=== PATIENT | female | born 1985 | race Caucasian/White ===

== ENCOUNTER 2017-10-08 03:13 | Emergency (ER) | payer OTHER, MEDICAID ==
[2017-10-08] MEDS ORDERED: LORazepam 1 MG TAB PO ONE (03:17)
--- NOTE | 2017-10-08 03:22 | EDPHY ---
H & P HPI/ROS: HPI CHIEF COMPLAINT: Anxiety attack HISTORY OF PRESENT ILLNESS: This patient is a 32-year-old female, significant past medical history for alcoholism, daily alcohol use homelessness, as well as anxiety and PTSD, she presents emergency room by EMS for acute anxiety attack. Patient called 911 front of a coffee store that is not open stating that she was having anxiety attack. She states she found out that she may been exposed HIV 3 years ago. This caused her to feel very anxious and she came to the emergency room by ambulance. Upon arrival she does state that she is anxious. She is noted to be tachycardic. But denies any other complaints. She is requesting HIV testing. Past Medical History: Anxiety, homelessness, daily alcohol use, alcoholism, PTSD, migraine headaches Past Surgical History: No recent surgery Social History: Homeless, daily alcohol use. Family History: Noncontributory ROS REVIEW OF SYSTEMS: A comprehensive 10 point review of systems is otherwise negative aside from elements mentioned in the history of present illness. Exam Constitutional appears anxious, triage nursing summary reviewed, vital signs reviewed, awake/alert. Noted to be tachycardic. Eyes normal conjunctivae and sclera, EOMI, PERRLA. HENT normal inspection, atraumatic, moist mucus membranes, no epistaxis, neck supple/ no meningismus, no raccoon eyes. Respiratory clear to auscultation bilaterally, normal breath sounds, no respiratory distress, no wheezing. Cardiovascular tachycardic , regular rhythm, no murmur, no edema, distal pulses normal. Gastrointestinal soft, non-tender, no rebound, no guarding, normal bowel sounds, no distension, no pulsatile mass. Genitourinary no CVA tenderness. Musculoskeletal no midline vertebral tenderness, full range of motion, no calf swelling, no tenderness of extremities, no meningismus, good pulses, neurovascularly intact. Skin pink, warm, & dry, no rash, skin atraumatic. Neurologic awake, alert and oriented x 3, AAOx3, moves all 4 extremities equally, motor intact, sensory intact, CN II-XII intact, normal cerebellar, normal vision, normal speech. Psychiatric anxious Heme/Lymph/Immune no lymphadenopathy. Differential Diagnosis: Includes but is not limited to in a particular order acute anxiety, panic attack, dehydration, cardiac arrhythmia Medical Decision Making: Plan for this patient 1 mg p.o. Ativan for acute anxiety control, obtain EKG due to tachycardia. Re-evaluation: 040: Patient received 1 mg p.o. Ativan. However when we were trying to obtain EKG she wanted leave against medical advice. She decided that she wanted to no longer be in the emergency room she went to go outside and smoke a cigarette. Heart rate was 130s. Were in the process of obtaining an EKG but she refused this decline. She signed out against medical advice. She understands the risk of doing so. Source: Patient, EMS - Personal History Tetanus Vaccine Date: < 10 years - Medical/Surgical History Hx Asthma: No Hx Chronic Respiratory Disease: No Hx Diabetes: No Hx Cardiac Disease: No Hx Renal Disease: No Hx Cirrhosis: No Hx Alcoholism: No Hx HIV/AIDS: No Hx Splenectomy or Spleen Trauma: No Other PMH: PS, ETOH abuse, PTSD, bipolar; borderline personality disorder; anxiety; depression - Social History Smoking Status: Heavy smoker Constitutional: Initial Vital Signs Temperature (C) 36.5 C 10/08/17 03:27 Heart Rate 130 H 10/08/17 03:27 Respiratory Rate 20 10/08/17 03:27 Blood Pressure 163/102 H 10/08/17 03:27 O2 Sat (%) 96 10/08/17 03:27 O2 Delivery Mode Room Air Allergies/Adverse Reactions: No Known Allergies Allergy (Verified 10/08/17 03:32) Home Medications: Medication Instructions Recorded ALPRAZolam [Xanax] 0.25 mg PO TID #90 tab 01/13/16 FLUoxetine [Prozac] 20 mg PO DAILY #60 cap 01/13/16 Medical Decision Making - Data Points Medications Given: Discontinued Medications Lorazepam (Ativan) 1 mg PO ONCE ONE Stop: 10/08/17 03:18 Last Admin: 10/08/17 03:25 Dose: 1 mg Departure - Departure Disposition: Against Medical Advice Clinical Impression: Anxiety, Tachycardia Condition: Fair Instructions: Anxiety (ED), Tachycardia (ED) Additional Instructions: 1. Return emergency room if you have worsening symptoms questions concerns. 2. If you change of mind about leaving where more than welcome to continue to evaluate. Referrals: Patient,NotPresent [Unknown] - As per Instructions
[2017-10-08 03:29] VITALS: BP 163/102; PULSE 130; RESP 20; TEMP 97.7; O2SAT 96
--- NOTE | 2017-10-10 17:28 | ASDISCHSUM ---
Discharge Information Plan Status: Medically Cleared to Leave:10/08/2017 Discharge Date:10/08/2017 04:08 AM CM D/C Disposition:Against Medical Advice ADT D/C Disposition:Against Medical Advice Projected Discharge Date:10/09/2017 12:00 AM Transportation at D/C: Discharge Delay Reason: Follow-Up Date:10/09/2017 12:00 AM Discharge Slot: Final Diagnosis:ETOH W/D, Suicidal ideation, Depression Placement Information Patient Contact Information Contact Name:MARKELL Relationship:Teja Address: Home Phone: City: [facility] Phone: [facility]/Zip Code: Email: Financial Information Financial Class: Primary Plan Desc:MEDICARE OUTPATIENT Primary Plan Number:[id number] Secondary Plan Desc:MEDICAID HEALTH FIRST [place] Secondary Plan Number:[id number] Assessment Information Case Management Discharge Plan Note Case Management Discharge Discharge Order Complete? Answers: Yes Patient to Obtain Answers: Independently Medications Discharge Comments Notes: Patient was seen by TLC who didn't feel she was suicidal at that time.TLC recommended that she become a patient with [facility]. She didn't want to stay in the hospital any longer and left. Date Signed: 10/10/2017 05:27 PM Electronically Signed By:Veronica Barrientos LCSW Intervention Information
== END 2017-10-08 04:08 | disposition left against medical advice (07) ==
LOC: EDUNIT#
DX: F41.9 Anxiety disorder, unspecified (principal); R00.0 Tachycardia, unspecified; F17.200 Nicotine dependence, unspecified, uncomplicated

== ENCOUNTER 2017-10-08 05:26 | Inpatient (IN) | payer MEDICAID, OTHER ==
--- NOTE | 2017-10-08 05:38 | EDPHY ---
H & P Stated Complaint: SI Source: Patient - Personal History LMP (Females 10-55): 15-21 Days Ago Current Tetanus/Diphtheria Vaccine: Yes Current Tetanus Diphtheria and Acellular Pertussis (TDAP): Yes Tetanus Vaccine Date: < 10 years - Medical/Surgical History Hx Asthma: No Hx Chronic Respiratory Disease: No Hx Diabetes: No Hx Cardiac Disease: No Hx Renal Disease: No Hx Cirrhosis: No Hx Alcoholism: No Hx HIV/AIDS: No Hx Splenectomy or Spleen Trauma: No Other PMH: PS, ETOH abuse, PTSD, bipolar; borderline personality disorder; anxiety; depression - Social History Smoking Status: Heavy smoker HPI/ROS: HPI CHIEF COMPLAINT: Suicidal ideation, anxiety HISTORY OF PRESENT ILLNESS: This patient is a 32-year-old female that just saw in the emergency room earlier and she left AMA to go outside and smoke cigarettes, she now presents back to the emergency room stating that she is suicidal. She does not have a specific plan for me. She does have underlying mental illness including borderline personality disorder, attention deficit hyperactivity disorder, PTSD anxiety. She states she is feeling very depressed and suicidal. Of note she did go outside for approximately an hour and smoked cigarettes. She now presents back to the emergency room she is noted to be tachycardic in the 130s. She has no complaints other than suicidal ideation. Past Medical History: PTSD, borderline personality disorder, anxiety, panic attack Past Surgical History: Denies recent surgery. Social History: Smokes tobacco. Denies illicit drugs or alcohol this evening. Family History: Noncontributory. ROS REVIEW OF SYSTEMS: A comprehensive 10 point review of systems is otherwise negative aside from elements mentioned in the history of present illness. Exam Constitutional triage nursing summary reviewed, vital signs reviewed, awake/ alert. Vital signs noted to be tachycardic. Eyes normal conjunctivae and sclera, EOMI, PERRLA. HENT normal inspection, atraumatic, moist mucus membranes, no epistaxis, neck supple/ no meningismus, no raccoon eyes. Respiratory clear to auscultation bilaterally, normal breath sounds, no respiratory distress, no wheezing. Cardiovascular tachycardic, regular rhythm, no murmur, no edema, distal pulses normal. Gastrointestinal soft, non-tender, no rebound, no guarding, normal bowel sounds, no distension, no pulsatile mass. Genitourinary no CVA tenderness. Musculoskeletal no midline vertebral tenderness, full range of motion, no calf swelling, no tenderness of extremities, no meningismus, good pulses, neurovascularly intact. Skin pink, warm, & dry, no rash, skin atraumatic. Neurologic awake, alert and oriented x 3, AAOx3, moves all 4 extremities equally, motor intact, sensory intact, CN II-XII intact, normal cerebellar, normal vision, normal speech. Psychiatric anxious, suicidal Heme/Lymph/Immune no lymphadenopathy. Differential Diagnosis: Includes but is not limited to in a particular order, depression, suicidal ideation, borderline personality disorder, malingering, drug intoxication, anxiety, alcohol draw, benzo withdrawal, polysubstance use Medical Decision Making: Plan for this patient IV establishment with blood draw for medical clearance, EKG for tachycardia, check drug screen. Patient be placed on M1 hold. Re-evaluation: 0549: M1 hold placed at this time. EKG interpretation by me on record in [employer] system. Impression time of EKG 5:55 a.m., sinus tachycardia rate of 147. Do not appreciate acute ischemic change. Patient denies chest pain or shortness of breath this EKG. 0636: Spoke with patient re-evaluated her. She does state that she is very anxious. She requested that her last dose of Xanax was over week ago. Also her last drink of alcohol she is states was 4 days ago. She does not think that she is going to alcohol withdrawal. I have ordered a L fluid as well as another mg IV Ativan to see if this helps for anxiety and tachycardia. Additionally I have added on a TSH. She denies drug use cocaine or stimulants. She is tachycardic upon arrival to Emergency room to 130s. At times when I walk into the room she feels anxious she goes up to the 150s. (Morro Melo) Constitutional: Initial Vital Signs Temperature (C) 36.6 C 10/08/17 05:29 Heart Rate 134 H 10/08/17 05:29 Respiratory Rate 16 10/08/17 05:29 Blood Pressure 152/100 H 10/08/17 05:29 O2 Sat (%) 99 10/08/17 05:29 O2 Delivery Mode Room Air Allergies/Adverse Reactions: No Known Allergies Allergy (Verified 10/08/17 03:32) Home Medications: Medication Instructions Recorded ALPRAZolam [Xanax] 0.25 mg PO TID #90 tab 01/13/16 FLUoxetine [Prozac] 20 mg PO DAILY #60 cap 01/13/16 Medical Decision Making ED Course/Re-evaluation: I assumed care of the patient at 0700 and evaluated her personally 8 o'clock in the morning. The patient continues to be tachycardic. It is unclear whether she may have some element of alcohol withdrawal. She reports her last drink was 5 days ago. She reports that she was having only a few drinks a day. The patient has been on benzodiazepines but reports she has been off these medications for 2 months. The patient continues to endorse vague suicidal ideation over concerns about possible HIV exposure. She denies a specific plan. The patient continued to have fairly significant tachycardia and agitation. I re-evaluated the patient at 8:30 p.m.. She was attempting to pull out her IVs. She required additional physical and chemical restraints. The patient will be admitted to the intensive care unit in the setting of her tachycardia, likely alcohol withdrawal and reported suicidal ideation. The patient received an additional 2 mg dose of IV Ativan at 8:30 a.m and he received 5 mg of Consultation was made with the hospitalist service at 8:40 a.m. The patient will be admitted by Dr Couch who I spoke with personally. I did check a CPK which was normal. The patient's urine toxicology demonstrates no evidence of a sympathomimetic. (Joshua Lucio) Differential Diagnosis: Differential diagnosis considered includes alcohol withdrawal, psychosis, dehydration, medication side effect, intoxication (Joshua Lucio) Critical Care Time: Critical care time exclusive of procedures and exclusive of the PA's time was 35 minutes, performed by myself, Joshua Lucio MD. The patient presents to the ED with agitation, ongoing tachycardia and likely severe alcohol withdrawal. The patient required multiple IV medications for treatment of her agitation and tachycardia. The patient ultimately required admission to the intensive care unit. (Joshua Lucio) Other Provider: I assumed care of the patient at 0700. (Joshua Lucio) - Data Points Laboratory Results: Laboratory Results 10/08/17 06:17 12 06:17 10/08/17 10/08/17 10/08/17 07:45 06:17 06:17 WBC RBC Hgb Hct MCV MCH MCHC RDW Plt Count MPV Neut % (Auto) Lymph % (Auto) Emery % (Auto) Eos % (Auto) Baso % (Auto) Nucleat RBC Rel Count Absolute Neuts (auto) Absolute Lymphs (auto) Absolute Monos (auto) Absolute Eos (auto) Absolute Basos (auto) Absolute Nucleated RBC Immature Gran % Immature Gran # Sodium Potassium Chloride Carbon Dioxide Anion Gap BUN Creatinine Estimated GFR Glucose Calcium Phosphorus Creatine Kinase 96 IU/L IU/L (0-156) TSH Beta HCG, Qual NEGATIVE Urine Opiates Screen NEGATIVE (NEGATIVE) Urine Barbiturates NEGATIVE (NEGATIVE) Ur Phencyclidine Scrn NEGATIVE (NEGATIVE) Ur Amphetamine Screen NEGATIVE (NEGATIVE) U Benzodiazepines Scrn NEGATIVE (NEGATIVE) Urine Cocaine Screen NEGATIVE (NEGATIVE) U Marijuana (THC) Screen NEGATIVE (NEGATIVE) Ethyl Alcohol 10/08/17 10/08/17 06:17 06:17 WBC 5.11 10^3/uL 10^3/uL (3.80-9.50) RBC 4.96 10^6/uL 10^6/uL (4.18-5.33) Hgb 17.1 g/dL H g/dL (12.6-16.3) Hct 48.5 % H % (38.0-47.0) MCV 97.8 fL fL (81.5-99.8) MCH 34.5 pg H pg (27.9-34.1) MCHC 35.3 g/dL g/dL (32.4-36.7) RDW 12.1 % % (11.5-15.2) Plt Count 123 10^3/uL L 10^3/uL (150-400) MPV 10.5 fL fL (8.7-11.7) Neut % (Auto) 70.8 % % (39.3-74.2) Lymph % (Auto) 18.8 % % (15.0-45.0) Emery % (Auto) 9.0 % % (4.5-13.0) Eos % (Auto) 0.4 % L % (0.6-7.6) Baso % (Auto) 0.8 % % (0.3-1.7) Nucleat RBC Rel Count 0.0 % % (0.0-0.2) Absolute Neuts (auto) 3.62 10^3/uL 10^3/uL (1.70-6.50) Absolute Lymphs (auto) 0.96 10^3/uL L 10^3/uL (1.00-3.00) Absolute Monos (auto) 0.46 10^3/uL 10^3/uL (0.30-0.80) Absolute Eos (auto) 0.02 10^3/uL L 10^3/uL (0.03-0.40) Absolute Basos (auto) 0.04 10^3/uL 10^3/uL (0.02-0.10) Absolute Nucleated RBC 0.00 10^3/uL 10^3/uL (0-0.01) Immature Gran % 0.2 % % (0.0-1.1) Immature Gran # 0.01 10^3/uL 10^3/uL (0.00-0.10) Sodium 139 mEq/L mEq/L (134-144) Potassium 3.6 mEq/L mEq/L (3.5-5.2) Chloride 98 mEq/L mEq/L (97-110) Carbon Dioxide 24 mEq/l mEq/l (22-31) Anion Gap 17 mEq/L H mEq/L (8-16) BUN 7 mg/dL mg/dL (7-23) Creatinine 0.9 mg/dL mg/dL (0.6-1.0) Estimated GFR > 60 Glucose 109 mg/dL H mg/dL (70-100) Calcium 10.7 mg/dL H mg/dL (8.5-10.4) Phosphorus 3.3 mg/dL mg/dL (2.5-4.5) Creatine Kinase TSH 5.280 uIU/mL H uIU/mL (0.465-4.680) Beta HCG, Qual Urine Opiates Screen Urine Barbiturates Ur Phencyclidine Scrn Ur Amphetamine Screen U Benzodiazepines Scrn Urine Cocaine Screen U Marijuana (THC) Screen Ethyl Alcohol < 10 mg/dL mg/dL (0-10) Medications Given: Discontinued Medications Sodium Chloride (Ns) 1,000 mls @ 0 mls/hr IV ONCE ONE PRN Reason: Wide Open Stop: 10/08/17 05:45 Last Admin: 10/08/17 06:36 Dose: 1,000 mls Sodium Chloride (Ns) 1,000 mls @ 0 mls/hr IV ONCE ONE PRN Reason: Wide Open Stop: 10/08/17 06:30 Last Admin: 10/08/17 06:37 Dose: 1,000 mls Lorazepam (Ativan Injection) 1 mg IVP EDNOW ONE Stop: 10/08/17 05:59 Last Admin: 10/08/17 06:36 Dose: 1 mg Lorazepam (Ativan Injection) 1 mg IVP EDNOW ONE Stop: 10/08/17 06:30 Last Admin: 10/08/17 06:36 Dose: 1 mg Lorazepam (Ativan Injection) 1 mg IVP EDNOW ONE Stop: 10/08/17 06:47 Last Admin: 10/08/17 06:52 Dose: 1 mg Lorazepam (Ativan Injection) 2 mg IVP EDNOW ONE Stop: 10/08/17 08:44 Last Admin: 10/08/17 08:44 Dose: 2 mg Departure - Departure Disposition: [facility] Clinical Impression: Suicidal ideation, Tachycardia, Alcohol withdrawal Condition: Fair
[2017-10-08] MEDS ORDERED: NS 1,000 ML IV ONE ×2 (05:44→06:29)
--- NOTE | 2017-10-08 05:56 | CPEKG ---
Heart Rate: 147 RR Interval: 408 P-R Interval: 132 QRSD Interval: 72 QT Interval: 268 QTC Interval: 420 P Alma: 74 QRS Alma: 59 T Wave Alma: 82 EKG Severity - ABNORMAL ECG - EKG Impression: SINUS TACHYCARDIA EKG Impression: PROBABLE LEFT ATRIAL ABNORMALITY EKG Impression: BORDERLINE Q WAVES IN INFERIOR LEADS EKG Impression: INFERIOR Q WAVES, PROBABLY NORMAL VARIATION Electronically Signed By: Morro Melo 08-Oct-2017 07:06:53
[2017-10-08] MEDS ORDERED: LORazepam 2 MG/ML INJ IVP ONE ×4 (05:58→08:43)
[2017-10-08 06:24] LABS: % IMMATURE GRANULYOCYTES 0.2 % (0.0-1.1); ABSOLUTE IMMATURE GRANULOCYTES 0.01 10^3/uL (0.00-0.10); ADD DIFF? NO; ADD MORPH? NO; ADD SCAN? NO; ATYPICAL LYMPHOCYTE FLAG 0 (0-99); FRAGMENT RBC FLAG 0 (0-99); HEMATOCRIT 48.5 % (38.0-47.0); HEMOGLOBIN 17.1 g/dL (12.6-16.3); LEFT SHIFT FLG 0 (0-99); LIPEMIA HEMOLYSIS FLAG 90 (0-99); MEAN CELL HEMOGLOBIN 34.5 pg (27.9-34.1); MEAN CELL HEMOGLOBIN CONCENTR. 35.3 g/dL (32.4-36.7); MEAN CELL VOLUME 97.8 fL (81.5-99.8); MEAN PLATELET VOLUME 10.5 fL (8.7-11.7); PLATELET CLUMPS FLAG 10 (0-99); PLATELET COUNT 123 10^3/uL (150-400); RED BLOOD CELL COUNT 4.96 10^6/uL (4.18-5.33); RED CELL DISTRIBUTION WIDTH 12.1 % (11.5-15.2)
[2017-10-08 06:46] LABS: ANION GAP 17 mEq/L (8-16); CALCIUM 10.7 mg/dL (8.5-10.4); CARBON DIOXIDE 24 mEq/l (22-31); CHLORIDE 98 mEq/L (97-110); CREATININE 0.9 mg/dL (0.6-1.0); ETHANOL SERUM < 10 mg/dL (0-10); GLOMERULAR FILTRATION RATE > 60; GLUCOSE 109 mg/dL (70-100); POTASSIUM 3.6 mEq/L (3.5-5.2); SODIUM 139 mEq/L (134-144)
[2017-10-08] MEDS ORDERED: LORazepam 2 MG/ML INJ ONE (08:33)
[2017-10-08] MEDS ORDERED: OLANZapine DISINTEGR 5 MG TAB PO ONE (08:51)
[2017-10-08] MEDS ORDERED: HALOPERIDOL LACT 5 MG/ML INJ IVP PRN (09:56)
[2017-10-08] MEDS ORDERED: DEXMEDETOMIDINE HCL 400 MCG in NS 100 ML IV SCH (10:00)
[2017-10-08] MEDS: LORazepam 2 MG/ML INJ IVP SCH ×4 (10:07→20:14)
[2017-10-08] MEDS: FLUoxetine 20 MG CAP PO SCH (12:10)
[2017-10-08] MEDS: D5W 1/2 NS W/ 20 KCl/L 1,000 ML IV SCH (12:40)
[2017-10-08] MEDS: THIAMINE HCL 500 MG in NS 100 ML IV SCH (12:40)
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
[2017-10-08] MEDS: CYCLOBENZAPRINE 10 MG TAB PO PRN (20:14)
[2017-10-08] MEDS: FAMOTIDINE 20 MG TAB PO SCH (20:14)
[2017-10-09] MEDS: LORazepam 2 MG/ML INJ IVP SCH ×4 (02:24→15:04)
[2017-10-09] MEDS: D5W 1/2 NS W/ 20 KCl/L 1,000 ML IV SCH ×2 (02:24→05:27)
[2017-10-09] MEDS: DEXMEDETOMIDINE IN 0.9 % NACL 100 ML IV SCH ×2 (05:27)
[2017-10-09 05:48] LABS: % IMMATURE GRANULYOCYTES 0.3 % (0.0-1.1); ABSOLUTE IMMATURE GRANULOCYTES 0.01 10^3/uL (0.00-0.10); ADD DIFF? NO; ADD MORPH? NO; ADD SCAN? NO; ATYPICAL LYMPHOCYTE FLAG 0 (0-99); FRAGMENT RBC FLAG 0 (0-99); HEMATOCRIT 39.7 % (38.0-47.0); HEMOGLOBIN 13.8 g/dL (12.6-16.3); LEFT SHIFT FLG 0 (0-99); LIPEMIA HEMOLYSIS FLAG 90 (0-99); MEAN CELL HEMOGLOBIN 35.2 pg (27.9-34.1); MEAN CELL HEMOGLOBIN CONCENTR. 34.8 g/dL (32.4-36.7); MEAN CELL VOLUME 101.3 fL (81.5-99.8); MEAN PLATELET VOLUME 10.9 fL (8.7-11.7); PLATELET CLUMPS FLAG 10 (0-99); PLATELET COUNT 90 10^3/uL (150-400); RED BLOOD CELL COUNT 3.92 10^6/uL (4.18-5.33)
[2017-10-09 06:09] LABS: ANION GAP 8 mEq/L (8-16); CALCIUM 8.8 mg/dL (8.5-10.4); CARBON DIOXIDE 23 mEq/l (22-31); CHLORIDE 108 mEq/L (97-110); CREATININE 0.8 mg/dL (0.6-1.0); GLOMERULAR FILTRATION RATE > 60; GLUCOSE 93 mg/dL (70-100); MAGNESIUM 1.5 mg/dL (1.6-2.3); POTASSIUM 4.4 mEq/L (3.5-5.2); SODIUM 139 mEq/L (134-144)
[2017-10-09] MEDS: FAMOTIDINE 20 MG TAB PO SCH (08:59)
[2017-10-09] MEDS: FLUoxetine 20 MG CAP PO SCH (08:59)
[2017-10-09] MEDS: THIAMINE HCL 500 MG in NS 100 ML IV SCH (08:59)
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
[2017-10-09] MEDS: chlordiazePOXIDE 25 MG CAP PO SCH ×2 (12:03→16:33)
--- NOTE | 2017-10-09 14:20 | HOSPPROG ---
Hospitalist Progress Note Assessment/Plan: # acute alcohol withdrawal- patient with marked tachycardia and tremulousness at presentation yesterday placed on Precedex drip overnight Markedly less tremulous this a.m. reports baseline tremor- telemetry ( personally reviewed and interpreted) sinus rhythm- heart rate in 90s this a.m. WBC dropped to 3 this am - oxygen saturations 94% on RA - DC Precedex - start scheduled Librium - continue CIWA - continue thiamin - can medically clear for psychiatric evaluation # suicidal ideation- acute- M1 hold placed in the emergency department - continue home psychiatric medications - TLC consultation for disposition # depression - continue home meds as outlined above # disposition- > 2 midnight as requiring medical management of acute alcohol withdrawal in psychiatric consultation for suicidal ideation I have discussed the case with the RN- CIWA score markedly improved will medically clear for TLC evaluation Subjective: tired Objective: Vital Signs Temp Pulse Resp BP Pulse Ox 36.7 C 94 18 104/64 99 10/09/17 11:50 10/09/17 11:50 10/09/17 11:50 10/09/17 11:50 10/09/17 11:50 Laboratory Results 10/09/17 05:30 10/09/17 05:30 10/08/17 10/09/17 10/10/17 05:59 05:59 05:59 Intake Total 5179 Output Total 1550 Balance 3629 - Physical Exam Constitutional: appears nourished Eyes: anicteric sclera Ears, Nose, Mouth, Throat: dry mucous membranes Cardiovascular: regular rate and rhythym Respiratory: no respiratory distress, no rales or rhonchi Gastrointestinal: normoactive bowel sounds Genitourinary: no bladder fullness Skin: warm Musculoskeletal: No asymmetric calves Neurologic: AAOx3 Psychiatric: depressed, flat affect Lymph, Heme, Immunologic: no cervical LAD ICD10 Worksheet Patient Problems: Problems Problem Status Onset Alcohol withdrawal Acute Suicidal ideation Acute Tachycardia Acute Alcohol abuse Acute Alcohol intoxication Acute Polysubstance abuse Acute Unresponsive Acute
[2017-10-09] MEDS: CYCLOBENZAPRINE 10 MG TAB PO PRN (16:33)
[2017-10-09] MEDS ORDERED: LORazepam 1 MG TAB PO PRN (17:09)
[2017-10-09] MEDS ORDERED: ACETAMINOPHEN 325 MG TAB PO PRN (17:10)
--- NOTE | 2017-10-09 20:36 | PDDCSUM ---
Discharge Summary Discharge Summary: DISCHARGE SUMMARY FOLLOW-UP ITEMS: Establish mental health care at [facility] DATE OF ADMISSION: 10/08/2017 DATE OF DISCHARGE: 10/09/2017 DISCHARGE DIAGNOSES: 1. Acute suicidal ideation 2. Acute alcohol withdrawal 3. Chronic depression CONSULTATIONS: Behavioral health PROCEDURES / IMAGING: None CHIEF COMPLAINT: Acute suicidal ideation SUBJECTIVE: Patient is feeling anxious but determined to be discharged PHYSICAL EXAM ON DISCHARGE: Heart rate 100, systolic blood pressure 117 comma afebrile, satting well on room air, mildly tremulous, anxious, thought process is linear, speech is somewhat rapid, but the patient is cooperative and does follow commands, pain level 0/10, she is fully oriented and understands the potential ramifications of being discharged at night LABS ON DISCHARGE: TSH 5.2, alcohol level negative, tox screen negative HOSPITAL COURSE BY PROBLEM: 1. Acute alcohol withdrawal. Patient presented with tachycardia and tremulousness, required a Precedex drip in the ICU, behaviorally stablized, and has only required 1 dosage of oral benzodiazepine today. She does have some ongoing mild tremulousness, and does appear easily excitable, but she does not appear to be encephalopathic, and she is requesting to be discharged at this time. Given her potential risk of ongoing alcohol abuse, I do not feel comfortable prescribing her benzodiazepines and none will be provided at time of discharge. 2. Acute suicidal ideation. Patient reports that she was suicidal when she presented secondary to a panic attack secondary to her challenging life situation. I evaluated her prior to discharge and the patient reports that she is not suicidal. She was also seen by behavioral health and they did not believe she was suicidal either. They did recommend ongoing outpatient mental health care, preferably through [facility]. The patient reports that she has establish care at [facility], but is not established at [facility]. She will need to establish care after this discharge. 3. Chronic depression. The patient reports that she has chronic depression is chronically on Prozac. This is prescribed the [facility]. She reports she does not have any of these medications available. I have written a script for 20 mg of Prozac. The patient has asked for other medications to help manage her anxiety and chronic pain including muscle relaxants and benzodiazepines, and I do not feel comfortable prescribing these medications this patient at this time given her high abuse potential. I have offered to allow the patient to continue receiving care here in the hospital so that she can be reassessed by her regular day team providers, and the patient has declined this offer, asking to be discharged at this time. DISCHARGE MEDICATIONS: Please see official discharge medication reconciliation sheet in chart , Prozac 20 mg daily. DISCHARGE INSTRUCTIONS: [facility] thereafter. TIME SPENT: Greater than 30 minutes were spent on direct patient care, as well as discharge planning and preparation.
[2017-10-09 20:37] VITALS: BP 114/87; PULSE 107; RESP 20; TEMP 98; O2SAT 95
[2017-10-10] MEDS ORDERED: THIAMINE HCL 100 MG TAB PO SCH (09:00)
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
== END 2017-10-09 20:30 | disposition home or self-care (01) | DRG 897 ==
LOC: F2N 11:04
PROVIDERS: ADMIT Internal Medicine; ATTEND Internal Medicine
DX: F10.239 Alcohol dependence with withdrawal, unspecified (principal); F32.9 Major depressive disorder, single episode, unspecified; Z72.0 Tobacco use
CPT/HCPCS: 80305; 96374; G0480; J2060; J3411

== ENCOUNTER 2017-10-18 16:07 | Emergency (ER) | payer OTHER ==
--- NOTE | 2017-10-18 16:27 | EDPHY ---
H & P Time Seen by Provider: 10/18/17 16:07 HPI/ROS: CHIEF COMPLAINT: Altered mental status, alcohol intoxication HISTORY OF PRESENT ILLNESS: 32-year-old female presents to the emergency department by ambulance with acute alcohol intoxication. The patient was found lying outside. When she was a woken she became extremely combative. No reported trauma. The patient has no complaints. She denies drinking alcohol today. Denies any other substance abuse. She is prescribed Klonopin but did not take this today. She has a history of PTSD. She does not feel depressed. She is not suicidal or homicidal. She is requesting to leave. Currently she has no physical complaints. REVIEW OF SYSTEMS: Constitutional: No fever, no chills. Eyes: No double or blurry vision. ENT: No sore throat. Respiratory: No cough, no shortness of breath. Cardiac: No chest pain. Gastrointestinal: No abdominal pain, vomiting or diarrhea. Genitourinary: No dysuria. Musculoskeletal: No neck or back pain. Skin: No rashes. Neurological: No headache. Past Medical/Surgical History: Depression, PTSD Social History: Single Smoking Status: Heavy smoker Physical Exam: General Appearance: Alert, no distress. Smells of alcohol. Is slurring her words. No visible signs of trauma to her head. Eyes: Pupils equal and round. Extraocular motions are all intact. ENT: Mouth: Mucous membranes moist. Respiratory: No wheezing, rhonchi, or rales, lungs are clear to auscultation. Cardiovascular: Regular rate and rhythm. Gastrointestinal: Abdomen is soft and nontender, no masses, no rebound or guarding, bowel sounds normal. Neurological: Alert and oriented x3, uncooperative for remainder of cranial nerve exam. Skin: Warm and dry, no rashes. Musculoskeletal: Nontender to palpate along the cervical, thoracic or lumbar spine. Neck is supple. Extremities: Full range of motion and no peripheral edema. Psychiatric: Patient is oriented X 3, there is mildly agitated. Constitutional: Initial Vital Signs Temperature (C) 36.5 C 10/18/17 16:07 Heart Rate 111 H 10/18/17 16:07 Respiratory Rate 16 10/18/17 16:07 Blood Pressure 125/81 H 10/18/17 16:07 O2 Sat (%) 96 10/18/17 16:07 O2 Delivery Mode Room Air Allergies/Adverse Reactions: No Known Allergies Allergy (Verified 10/18/17 16:26) Home Medications: Medication Instructions Recorded ALPRAZolam [Xanax 0.25 MG (*)] 0.25 mg PO TID 10/08/17 Cyclobenzaprine [Flexeril 10 MG 10 mg PO TID PRN 10/08/17 (*)] Zolpidem Tartrate [Ambien 10 mg] 10 mg PO HS PRN 10/08/17 Acetaminophen [Tylenol 325mg (*)] 650 mg PO Q4H PRN tab 10/09/17 FLUoxetine [Prozac 20 MG (*)] 20 mg PO DAILY #30 cap 10/09/17 Medical Decision Making ED Course/Re-evaluation: 32-year-old female presents to the emergency department with acute alcohol intoxication. Initially the patient denied drinking alcohol. She had to had ETOH breath of 263 which was a manual since she had weak effort. The patient called her friend Jovany the who is on his way to pick the patient up. She is not on an arc hold. The patient understands that she will be kept in the emergency department to keep her safe until her friend arrives. I do not think laboratory tests are indicated. She has a normal gait. She is requesting to leave but understands that she needs to wait till her sober ride arrives. Blood sugar 99 in the field. Patient has no complaints. Patient sober friend arrived at 1635. The patient did an ETOH breath for security which was 0. He feels comfortable taking her home. Patient has no complaints upon discharge. Differential Diagnosis: Altered mental status including but not limited to hypoglycemia, infectious process, electrolyte abnormality, head injury and intoxicants. Departure - Departure Disposition: Home, Routine, Self-Care Clinical Impression: Alcohol intoxication Qualifiers: Complication of substance-induced condition: uncomplicated Qualified Code(s): F10.920 - Alcohol use, unspecified with intoxication, uncomplicated Condition: Good Instructions: Alcohol Intoxication (ED) Additional Instructions: You should not drink alcohol in excess. Referrals: [facility] [Outside] - As per Instructions
[2017-10-18 16:39] VITALS: BP 125/81; PULSE 111; RESP 16; TEMP 97.7; O2SAT 96
== END 2017-10-18 16:58 | disposition home or self-care (01) ==
LOC: EDUNIT#
DX: F10.920 Alcohol use, unspecified with intoxication, uncomplicated (principal); F17.200 Nicotine dependence, unspecified, uncomplicated

== ENCOUNTER 2018-03-19 16:01 | Emergency (ER) | payer MEDICAID, OTHER ==
--- NOTE | 2018-03-19 16:08 | EDPHY ---
H & P Smoking Status: Heavy smoker Time Seen by Provider: 03/19/18 16:11 HPI/ROS: CHIEF COMPLAINT: "I'm drunk and I want to kill myself" HISTORY OF PRESENT ILLNESS: 32-year-old homeless female history of depression arrives via ambulance after [place] admitted to alcohol and suicidal ideation. Denies plan. Denies self-injurious behavior such as cutting or burning. Denies hallucination. Denies coingestion. REVIEW OF SYSTEMS: A ten point review of systems was performed and is negative with the exception of the items mentioned in the HPI PAST MEDICAL & SURGICAL HISTORY: Depression. Prior suicidal ideation SOCIAL HISTORY:Positive for alcohol PHYSICAL EXAM (Prior to examination, patient consented to physical exam, hands were washed and my usual and customary physical exam procedures followed) 1) GENERAL: poorly kept, smells of alcohol, foul smelling. 2) HEAD: Normocephalic, atraumatic 3) HEENT: Pupils equal, round, reactive to light bilaterally. Sclera anicteric. 4) NECK: Full range of motion, no meningeal signs. 5) LUNGS: Clear auscultation bilaterally, no wheezes, no rhonchi, no retractions. 6) HEART: Regular rate and rhythm, no murmur, no heave, no gallop. 7) ABDOMEN: No guarding, no rebound, no focal tenderness, 8) MUSCULOSKELETAL: No peripheral edema or discoloration. 9) BACK: No obvious trauma, no visual or palpable abnormality. 10) SKIN: No rash, no petechiae. 11) Psychiatric: Patient is oriented X 3, there is no agitation. DIFFERENTIAL DIAGNOSIS: In no particular orderincluding but not limited to hypoglycemia, infectious process, electrolyte abnormality, head injury and intoxicants. (Leif Bales) Constitutional: Initial Vital Signs Temperature (C) 36.6 C 03/19/18 16:01 Heart Rate 86 03/19/18 16:01 Respiratory Rate 15 03/19/18 16:01 Blood Pressure 110/80 03/19/18 16:01 O2 Sat (%) 96 03/19/18 16:01 O2 Delivery Mode Room Air Allergies/Adverse Reactions: No Known Allergies Allergy (Verified 10/18/17 16:26) Home Medications: Medication Instructions Recorded ALPRAZolam [Xanax 0.25 MG (*)] 0.25 mg PO TID 10/08/17 Cyclobenzaprine [Flexeril 10 MG 10 mg PO TID PRN 10/08/17 (*)] Zolpidem Tartrate [Ambien 10 mg] 10 mg PO HS PRN 10/08/17 Acetaminophen [Tylenol 325mg (*)] 650 mg PO Q4H PRN tab 10/09/17 FLUoxetine [Prozac 20 MG (*)] 20 mg PO DAILY #30 cap 10/09/17 MDM/Departure - MDM Medications Given: Discontinued Medications Chlordiazepoxide (Librium 25 Mg Prepack#6) 1 btl TAKEHOME EDNOW ONE Stop: 03/19/18 20:10 Last Admin: 03/19/18 20:22 Dose: 1 btl Chlordiazepoxide HCl (Librium) 25 mg PO EDNOW ONE Stop: 03/20/18 06:47 Last Admin: 03/20/18 06:48 Dose: 25 mg Ibuprofen (Motrin) 600 mg PO EDNOW ONE Stop: 03/20/18 00:53 Last Admin: 03/20/18 00:54 Dose: 600 mg ED Course/Re-evaluation: 2300 care assumed from LUKAS Bales pending sober mental health evaluation. 0615 patient is now awake and sober. She does not have recollection of events from last night. She denies being suicidal at this time. She is skyla for safety. She has no intent to harm herself or others. She is medically cleared for discharge. (Liang Oswald) 4:07 p.m.: I placed the patient on detain her as she appears to be intoxicated I do not think she has decision-making capacity. During the course my interview over she will transiently admit to suicidal ideation and then declined this. Will allow the patient to sober and then re-evaluated. Care of patient under supervision of secondary supervising physician Dr Ying . 6:50 p.m.: Patient's alcohol level is elevated at 533. She will need to sober in the ER until she can have mental health evaluation. 8:07 p.m.: Patient re-evaluated as she is yelling in the room, eating food, throwing food, "Fuck off asshole". Inquired whether she is experiencing suicidal homicidal ideation and she denies this. Plan will [facility]. 9:03 p.m.: Police in the emergency department. At this time the patient is adamant that she is suicidal and that if she is discharged she will kill herself. She will therefore stay in the emergency department. She is currently on a detainer given her prior alcohol level 533 less than 3 hr ago. She will need to sober more so. 11:00 p.m.: Care turned over to Dr. Oswald at this time (Leif Bales) - Depart Disposition: Home, Routine, Self-Care Clinical Impression: Suicidal ideation Alcohol intoxication Qualifiers: Complication of substance-induced condition: uncomplicated Qualified Code(s): F10.920 - Alcohol use, unspecified with intoxication, uncomplicated Condition: Good Instructions: Alcohol Intoxication (ED) Additional Instructions: Please consider long-term sobriety from alcohol Referrals: NONE *PRIMARY CARE P,. [Primary Care Provider] - As per Instructions
[2018-03-19 17:45] LABS: PLATELET COUNT 145 10^3/uL (150-400)
[2018-03-19] MEDS ORDERED: CHLORDIAZEPOXIDE 25MG PREPK#6 BTL TAKEHOME ONE (20:09)
[2018-03-20] MEDS ORDERED: IBUPROFEN 600 MG TAB PO ONE (00:52)
[2018-03-20 06:26] VITALS: BP 102/70
[2018-03-20] MEDS ORDERED: chlordiazePOXIDE 25 MG CAP PO ONE (06:46)
== END 2018-03-20 06:50 | disposition home or self-care (01) ==
LOC: EDUNIT# → EEVIPCON 16:01
DX: R45.851 Suicidal ideations (principal); F10.920 Alcohol use, unspecified with intoxication, uncomplicated; F17.200 Nicotine dependence, unspecified, uncomplicated
CPT/HCPCS: 80305; G0480

== ENCOUNTER 2018-03-25 14:03 | Emergency (ER) | payer MEDICAID ==
--- NOTE | 2018-03-25 14:19 | EDPHY ---
H & P Time Seen by Provider: 03/25/18 14:18 HPI/ROS: CHIEF COMPLAINT: Suicidal HISTORY OF PRESENT ILLNESS: Pre-hospital glucose 58. Patient says she called EMS because she is feeling suicidal. Drinking a lot of alcohol today. Has chronic pain in her back in both legs which is unchanged. She has no other medical complaints except"I need pain medication"but I"drink a lot of vodka today." REVIEW OF SYSTEMS: Eye: no change in vision ENT: no sore throat Cardiac: no chest pain or syncope Pulmonary: no cough or SOB Abdomen: no vomiting, diarrhea, abdominal pain Musculoskeletal: HPI Skin: no rash Neuro: no headache Constitutional: no fever : no urinary symptoms Denies overdose or self injury A comprehensive 10 point review of systems is otherwise negative aside from elements mentioned in the history of present illness. PAST MEDICAL HISTORY: Alcohol, anxiety and depression, personality disorder Social history: Recent alcohol General Appearance: Alert, cooperative, slurred speech Eyes: No scleral icterus. ENT, Mouth: Normal mucous membranes. Respiratory: Normal respiratory effort, breath sounds equal, lungs are clear to auscultation. Cardiovascular: Regular rate and rhythm. Gastrointestinal: Abdomen is soft and non tender. Neurological: Alert, face symmetric, normal motor and sensory in extremities. No clonus and toes downgoing bilaterally. Skin: No laceration Musculoskeletal: No peripheral edema. Psychiatric: Not agitated. Says she is suicidal. Emergency Department course/MDM: Placed a detainer for intoxication, screening psych labs ordered. 1705: Patient is now alert and ambulatory, clinically sober, tells me "I lied" about being suicidal and says she does not want hurt herself and she wants to "live for my children." At this point I think it is reasonable to have a sober ride take her home. Smoking Status: Heavy smoker Constitutional: Initial Vital Signs Temperature (C) 36.6 C 03/25/18 14:07 Heart Rate 102 H 03/25/18 14:07 Respiratory Rate 18 03/25/18 14:07 Blood Pressure 122/82 H 03/25/18 14:07 O2 Sat (%) 96 03/25/18 14:07 O2 Delivery Mode Room Air Allergies/Adverse Reactions: No Known Allergies Allergy (Verified 10/18/17 16:26) Home Medications: Medication Instructions Recorded ALPRAZolam [Xanax 0.25 MG (*)] 0.25 mg PO TID 10/08/17 Cyclobenzaprine [Flexeril 10 MG 10 mg PO TID PRN 10/08/17 (*)] Zolpidem Tartrate [Ambien 10 mg] 10 mg PO HS PRN 10/08/17 Acetaminophen [Tylenol 325mg (*)] 650 mg PO Q4H PRN tab 10/09/17 FLUoxetine [Prozac 20 MG (*)] 20 mg PO DAILY #30 cap 10/09/17 Medical Decision Making - Data Points Laboratory Results: Laboratory Results 03/25/18 15:28 03/25/18 15:28 03/25/18 03/25/18 03/25/18 15:28 15:28 15:28 WBC 5.11 10^3/uL 10^3/uL (3.80-9.50) RBC 3.92 10^6/uL L 10^6/uL (4.18-5.33) Hgb 13.9 g/dL g/dL (12.6-16.3) Hct 41.2 % % (38.0-47.0) MCV 105.1 fL H fL (81.5-99.8) MCH 35.5 pg H pg (27.9-34.1) MCHC 33.7 g/dL g/dL (32.4-36.7) RDW 12.9 % % (11.5-15.2) Plt Count 274 10^3/uL 10^3/uL (150-400) MPV 9.4 fL fL (8.7-11.7) Neut % (Auto) 74.7 % H % (39.3-74.2) Lymph % (Auto) 18.4 % % (15.0-45.0) [place] % (Auto) 5.7 % % (4.5-13.0) Eos % (Auto) 0.2 % L % (0.6-7.6) Baso % (Auto) 0.8 % % (0.3-1.7) Nucleat RBC Rel Count 0.0 % % (0.0-0.2) Absolute Neuts (auto) 3.82 10^3/uL 10^3/uL (1.70-6.50) Absolute Lymphs (auto) 0.94 10^3/uL L 10^3/uL (1.00-3.00) Absolute Monos (auto) 0.29 10^3/uL L 10^3/uL (0.30-0.80) Absolute Eos (auto) 0.01 10^3/uL L 10^3/uL (0.03-0.40) Absolute Basos (auto) 0.04 10^3/uL 10^3/uL (0.02-0.10) Absolute Nucleated RBC 0.00 10^3/uL 10^3/uL (0-0.01) Immature Gran % 0.2 % % (0.0-1.1) Immature Gran # 0.01 10^3/uL 10^3/uL (0.00-0.10) Sodium 146 mEq/L H mEq/L (135-145) Potassium 4.2 mEq/L mEq/L (3.3-5.0) Chloride 107 mEq/L mEq/L (97-110) Carbon Dioxide 19 mEq/l L mEq/l (22-31) Anion Gap 20 mEq/L H mEq/L (8-16) BUN 14 mg/dL mg/dL (7-23) Creatinine 0.9 mg/dL mg/dL (0.6-1.0) Estimated GFR > 60 Glucose 174 mg/dL H mg/dL (70-100) Calcium 9.0 mg/dL mg/dL (8.5-10.4) Beta HCG, Qual NEGATIVE Salicylates < 1.0 mg/dL L mg/dL (2.0-20.0) Acetaminophen < 10 mcg/mL L mcg/mL (10-30) Ethyl Alcohol 373 mg/dL H mg/dL (0-10) Departure - Departure Disposition: Home, Routine, Self-Care Clinical Impression: Alcohol intoxication Qualifiers: Complication of substance-induced condition: uncomplicated Qualified Code(s): F10.920 - Alcohol use, unspecified with intoxication, uncomplicated Condition: Good Instructions: Alcohol Intoxication (ED) Referrals: [facility],. [Clinic] - As per Instructions [facility],. [Clinic] - As per Instructions
[2018-03-25 15:43] LABS: PLATELET COUNT 274 10^3/uL (150-400)
[2018-03-25 17:54] VITALS: BP 124/90
--- NOTE | 2018-03-25 18:51 | ASDISCHSUM ---
Discharge Information Plan Status:Home with No Needs Medically Cleared to Leave: Discharge Date:03/25/2018 05:54 PM CM D/C Disposition:Home, Routine, Self-Care ADT D/C Disposition:Home, Routine, Self-Care Projected Discharge Date:03/25/2018 05:54 PM Transportation at D/C:Friend Discharge Delay Reason: Follow-Up Date:03/25/2018 05:54 PM Discharge Slot: Final Diagnosis: Placement Information Patient Contact Information Contact Name:MARKELL Relationship:Other Address: Home Phone: City: [facility] Phone: State/Zip Code: Email: Financial Information Financial Class:Medicaid Primary Plan 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 Pt is heavily intoxicated and known to the ED for ETOH abuse and SI. Review past ED visit notes and reports for additional info. Pt eventually adamantly denied any SI and so ED MD dropped the detainer and discharged patient to a sober ride. Pt's friend Rhys ([phone]) came to the ED earlier but pt was not allowed to be discharged at that time so he returned home. Pt wanted her friend Narciso ([phone]) to come and pick her up. Narciso arrived to the ED and provided pt a sober ride home. This CM spoke with patient extensively re:her recent ED visits, ETOH abuse, lack of follow-up with [facility], etc. Pt states she is followed by [facility]. Pt states she still needs to have an initial evaluation with [facility] but "is scared of therapy, I don't think it works." Pt was born in [place] and adopted to an [place] family when she was 10 yrs old. Before being adopted, pt was in and out of [place] [facility] and her mother of a heart attack in her mid-30's. Pt reports that when she was adopted she was "forced" to do therapy every day. Pt's adopted parents live in [place] and pt spoke with her mother a couple of weeks ago "but she just wants to hear the good stuff" and is not necessarily involved. Pt has three children and they are all either in foster care or adopted (pt's oldest is 11 yrs old). Pt hopes to one day "get her sh*t together" and "hopefully they'll want to see me someday." Pt also reports staying in contact with her biological sister and two step-sisters. Pt strongly encouraged to follow up with [facility] and [facility] this week and to continue to consider outpatient treatment options. Pt states she has Medicaid and Medicare (pt states she receive disability due to her chronic depression, borderline personality disorder, PTSD, ADD/ADHD) and receives her funds this upcoming Monday and hopes to "pre-pay" for inpatient treatment program. When asked where she has been looking into going, pt says she didn't know. Again, pt was strongly encouraged to follow up with [facility] and discuss her mental health and medications, but also ETOH abuse treatment options and how they can assist. Pt also provided a [facility] pamphlet and strongly encouraged to enroll in their services for further assistance. Pt is homeless but stays w/her friends Narciso Rhys or other friends. CM available for further assistance if needed. Date Signed: 03/25/2018 06:49 PM Electronically Signed By:Yvrose Wilkinson RN Intervention Information Intervention Type:Emotional Support Date of Service:03/25/2018 06:49 PM Patient Type:Emergency Room Staff Member:ALEXANDER Wilkinson [place] Hours:0.5 Discipline:Ornament Stapler Severity: Comment: Intervention Type:Post Acute Communication Date of Service:03/25/2018 06:49 PM Patient Type:Emergency Room Staff Member:ALEXANDER Wilkinson [place] Hours:0.25 Discipline:Ornament Stapler Severity: Comment:assisted w/ contacting pt's friends an d arranging a sober ride for pt Intervention Type:Community Resources Date of Service:03/25/2018 06:49 PM Patient Type:Emergency Room Staff Member:ALEXANDER Wilkinson [place] Hours:0.25 Discipline:Ornament Stapler Severity: Comment:[facility] Intervention Type:Health Clinic Date of Service:03/25/2018 06:49 PM Patient Type:Emergency Room Staff Member:ALEXANDER Wilkinson [place] Hours:0.25 Discipline:Ornament Stapler Severity: Comment:[facility] Intervention Type:Mental Health Treatment Date of Service:03/25/2018 06:49 PM Patient Type:Emergency Room Staff Member:ALEXANDER Wilkinson [place] Hours:0.25 Discipline:Ornament Stapler Severity: Comment:referral to [facility]
== END 2018-03-25 17:54 | disposition home or self-care (01) ==
LOC: EDBD → EDUNIT#
DX: F10.920 Alcohol use, unspecified with intoxication, uncomplicated (principal); F17.200 Nicotine dependence, unspecified, uncomplicated
CPT/HCPCS: G0480

== ENCOUNTER 2018-03-28 13:50 | Emergency (ER) | payer MEDICAID ==
--- NOTE | 2018-03-28 13:47 | EDPHY ---
H & P Time Seen by Provider: 03/28/18 13:52 Constitutional: Initial Vital Signs Temperature (C) 36.3 C 03/28/18 13:55 Heart Rate 74 03/28/18 13:55 Respiratory Rate 18 03/28/18 13:55 Blood Pressure 127/75 H 03/28/18 13:55 O2 Sat (%) 95 03/28/18 13:55 O2 Delivery Mode Room Air Allergies/Adverse Reactions: No Known Allergies Allergy (Verified 03/28/18 13:57) Home Medications: Medication Instructions Recorded ALPRAZolam [Xanax 0.25 MG (*)] 0.25 mg PO TID 10/08/17 Cyclobenzaprine [Flexeril 10 MG 10 mg PO TID PRN 10/08/17 (*)] Zolpidem Tartrate [Ambien 10 mg] 10 mg PO HS PRN 10/08/17 Acetaminophen [Tylenol 325mg (*)] 650 mg PO Q4H PRN tab 10/09/17 FLUoxetine [Prozac 20 MG (*)] 20 mg PO DAILY #30 cap 10/09/17 Medical Decision Making ED Course/Re-evaluation: CHIEF COMPLAINT: Alcohol intoxication. HISTORY OF PRESENT ILLNESS: The patient is a known alcoholic arriving via EMS after consuming around one pint of alcohol. Patient has had multiple ER visits over the last several years for the same complaint. Today she was was found in a park by bystanders who called EMS system. Patient denies any injuries denies loss of consciousness denies any recent trauma. Patient denies co-ingestion but per EMS was found with drug paraphernalia present. Patient denies suicidal or homicidal behavior. REVIEW OF SYSTEMS: A 10 point review of systems was performed and is negative with the exception of the elements mentioned in the history of present illness. PHYSICAL EXAM: General Appearance: Appears intoxicated. Head: Atraumatic without scalp tenderness or obvious injury Eyes: Pupils equal, round, reactive to light and accommodation, EOMI, no trauma , no injection. Ears: Clear bilaterally, no perforation, normal landmarks Nose: Atraumatic, no rhinorrhea, clear. Throat: Mucus membranes moist. Neck: Supple, nontender, no lymphadenopathy. Respiratory: No retractions, no distress, no wheezes, and no accessory muscle use. Lungs are clear to auscultation bilaterally. Cardiovascular: Regular rate and rhythm, no murmurs, rubs, or gallops. Good capillary refill all extremities. Gastrointestinal: Abdomen is soft, nontender, non-distended. Musculoskeletal: Normal active ROM of all extremities, atraumatic. Neurological: Alert, appropriate, and interactive. Nonfocal neuro exam. Skin: No rashes, good turgor, no nodules on palpation. PAST MEDICAL HISTORY: Alcohol abuse, PTSD, bipolar, borderline personality disorder, anxiety, depression PAST SURGICAL HISTORY: Noncontributory. SOCIAL HISTORY: Single. Lives in [place]. History of alcohol abuse. DIFFERENTIAL DIAGNOSIS: Includes but not limited to alcohol intoxication, polysubstance abuse, benzodiazepine toxicity, hypoglycemia. MEDICAL DECISION MAKING: I serially examined this patient since the patient's arrival here in the emergency department. The patient continues to become more and more sober with each examination. I serially questioned the patient and the patient's story given initially has not changed. The patient still denies any trauma, any head injury, and any illicit drug use. At this point, the patient is walking the department freely and is clinically sober. Urine tox screen positive for benzodiazepines. 16:00 Case management to consult. Patient will be discharged home with a sober ride. Follow up and return precautions discussed. Referrals given to [facility] and the [facility]. - Data Points Laboratory Results: 03/28/18 14:00 Urine Opiates Screen NEGATIVE (NEGATIVE) Urine Barbiturates NEGATIVE (NEGATIVE) Ur Phencyclidine Scrn NEGATIVE (NEGATIVE) Ur Amphetamine Screen NEGATIVE (NEGATIVE) U Benzodiazepines Scrn NON-NEGATIVE H (NEGATIVE) Urine Cocaine Screen NEGATIVE (NEGATIVE) U Marijuana (THC) Screen NEGATIVE (NEGATIVE) Departure - Departure Disposition: Home, Routine, Self-Care Clinical Impression: Alcohol intoxication Qualifiers: Complication of substance-induced condition: uncomplicated Qualified Code(s): F10.920 - Alcohol use, unspecified with intoxication, uncomplicated Condition: Good Instructions: Alcohol Intoxication (ED) Additional Instructions: Please follow up with [facility] to establish a primary mental health provider/counselor. The crisis center is open 22/05 [facility] [place] [address] Referrals: Patient,NotPresent [Unknown] - As per Instructions [facility] [Outside] - As per Instructions [facility] [Outside] - As per Instructions Report Scribed for: Joseph Rosario Report Scribed by: Jenae Villar Date of Report: 03/28/18 Time of Report: 14:03
[2018-03-28 17:04] VITALS: BP 133/75
--- NOTE | 2018-03-29 10:18 | ASMTCMCOM ---
CM Note CM Note Notes: Patient medically cleared for discharge with a "sober" carry all driver after being brought in by EMS. History reviewed in chart (see CM note from 03/25/18). Patient appears intoxicated, but pleasant and oriented to self and situation when I met with her. I asked patient if she has followed up with referrals to [facility] and/or [facility] and she tells me "I will". She tells me she feels 'safe' in her current living situation with friends and identifies Narciso or Rhys as "sober" drivers that can pick her up. I offered to get patient to the [facility] to continue sobering up, but she tells me she would prefer to have a sober friend pick her up. I contacted Rhys who is able to come and get patient. Date Signed: 03/29/2018 10:17 AM Electronically Signed By:Flor Salinas RN
== END 2018-03-28 17:05 | disposition home or self-care (01) ==
LOC: EDUNIT#
DX: F10.920 Alcohol use, unspecified with intoxication, uncomplicated (principal)
CPT/HCPCS: 80305

== ENCOUNTER 2018-04-04 14:09 | Emergency (ER) | payer MEDICAID ==
[2018-04-04 14:30] LABS: PLATELET COUNT 200 10^3/uL (150-400)
[2018-04-04] MEDS ORDERED: NS 1,000 ML IV ONE (14:55)
--- NOTE | 2018-04-04 15:24 | EDPHY ---
H & P Smoking Status: Heavy smoker Time Seen by Provider: 04/04/18 14:15 HPI/ROS: CHIEF COMPLAINT: Alcohol intoxication, suicidal ideation HISTORY OF PRESENT ILLNESS: 32-year-old female presents to the emergency department with acute alcohol intoxication. The patient admits to drinking a large amount of alcohol today. She is an alcoholic. She states that she feels suicidal. She denies a plan. Denies homicidal ideation. Denies auditory or visual hallucinations. No physical complaints currently. She denies fall. Denies a headache. Denies chest pain or difficulty breathing. Last menstrual period was 3 weeks ago and she denies . REVIEW OF SYSTEMS: Constitutional: No fever, no chills. Eyes: No double or blurry vision. ENT: No sore throat. Respiratory: No cough, no shortness of breath. Cardiac: No chest pain. Gastrointestinal: No abdominal pain, vomiting or diarrhea. Genitourinary: No dysuria. Musculoskeletal: No neck or back pain. Skin: No rashes. Neurological: No headache. (Jeana Doyle) Past Medical/Surgical History: Alcoholism, PTSD, bipolar, depression, anxiety, borderline personality disorder (Jeana Doyle) Social History: Single (Jeana Doyle) Physical Exam: General Appearance: Alert. Smells strongly of alcohol. No visible signs of trauma to her head. Eyes: Pupils equal and round. Extraocular motions are all intact. ENT: Mouth: Mucous membranes moist. Respiratory: No wheezing, rhonchi, or rales, lungs are clear to auscultation. Cardiovascular: Regular rate and rhythm. Gastrointestinal: Abdomen is soft, nontender nondistended. No masses, rebound or guarding noted. Neurological: Uncooperative, cannot determine. Skin: Warm and dry, no rashes. Musculoskeletal: Nontender to palpate along the cervical, thoracic or lumbar spine. Neck is supple. Extremities: Full range of motion and no peripheral edema. Psychiatric: Moderately agitated. (Jeana Doyle) Constitutional: Initial Vital Signs Temperature (C) 36.7 C 04/04/18 14:14 Heart Rate 113 H 04/04/18 14:14 Respiratory Rate 18 04/04/18 14:14 Blood Pressure 101/69 04/04/18 14:14 O2 Sat (%) 94 04/04/18 14:14 O2 Delivery Mode Room Air Allergies/Adverse Reactions: No Known Allergies Allergy (Verified 04/04/18 14:14) Home Medications: Medication Instructions Recorded ALPRAZolam [Xanax 0.25 MG (*)] 0.25 mg PO TID 10/08/17 Cyclobenzaprine [Flexeril 10 MG 10 mg PO TID PRN 10/08/17 (*)] Zolpidem Tartrate [Ambien 10 mg] 10 mg PO HS PRN 10/08/17 Acetaminophen [Tylenol 325mg (*)] 650 mg PO Q4H PRN tab 10/09/17 FLUoxetine [Prozac 20 MG (*)] 20 mg PO DAILY #30 cap 10/09/17 Medical Decision Making ED Course/Re-evaluation: 32-year-old female presents to the emergency department acutely intoxicated with alcohol and feeling depressed and suicidal. The patient was placed on a detainer by myself. When she is clinically sober and medically cleared, she will be evaluated by mental health. (Jeana Doyle) I took over care of this patient at 5:00 p.m.. This patient is here for alcohol intoxication and suicidal ideation. He had a serum alcohol greater than 400. He is currently on detainer. He is awaiting behavioral health evaluation. 8:30 p.m., informed by the nursing staff that the patient states that she is not suicidal and wishes to be discharged. 8:50 p.m., I evaluated this patient. She is clinically sober. She is responding to questions appropriately and in full sentences. She is up and ambulatory with a normal gait. She states that she is not suicidal. She reports that she got emotional with her roommate drinking last night. She denies any suicidal thoughts at this time. She has a scheduled follow-up appointment with by [facility] on April 17. She feels comfortable being discharged to home with a sober ride. Follow-up and return to emergency department precautions were thoroughly reviewed with her. All of her questions were answered. She was discharged in good condition. (Olivia Baker) Differential Diagnosis: Altered mental status including but not limited to hypoglycemia, infectious process, electrolyte abnormality, head injury and intoxicants. Depression including functional and major depression, situational depression, medication side effect, drugs and alcohol abuse. (Jeana Doyle) Care Turn Over: Care will be turned over to Dr. Olivia Baker at shift change. (Jeana Doyle) - Data Points Laboratory Results: Laboratory Results 04/04/18 14:15 04/04/18 14:15 04/04/18 04/04/18 04/04/18 14:32 14:15 14:15 WBC RBC Hgb Hct MCV MCH MCHC RDW Plt Count MPV Neut % (Auto) Lymph % (Auto) [place] % (Auto) Eos % (Auto) Baso % (Auto) Nucleat RBC Rel Count Absolute Neuts (auto) Absolute Lymphs (auto) Absolute Monos (auto) Absolute Eos (auto) Absolute Basos (auto) Absolute Nucleated RBC Immature Gran % Immature Gran # Sodium 142 mEq/L mEq/L (135-145) Potassium 3.9 mEq/L mEq/L (3.3-5.0) Chloride 108 mEq/L mEq/L (97-110) Carbon Dioxide 14 mEq/l L mEq/l (22-31) Anion Gap 20 mEq/L H mEq/L (8-16) BUN 13 mg/dL mg/dL (7-23) Creatinine 1.0 mg/dL mg/dL (0.6-1.0) Estimated GFR > 60 Glucose 101 mg/dL H mg/dL (70-100) Calcium 9.5 mg/dL mg/dL (8.5-10.4) Beta HCG, Qual NEGATIVE Urine Opiates Screen NEGATIVE (NEGATIVE) Urine Barbiturates NEGATIVE (NEGATIVE) Ur Phencyclidine Scrn NEGATIVE (NEGATIVE) Ur Amphetamine Screen NEGATIVE (NEGATIVE) U Benzodiazepines Scrn NON-NEGATIVE H (NEGATIVE) Urine Cocaine Screen NEGATIVE (NEGATIVE) U Marijuana (THC) Screen NEGATIVE (NEGATIVE) Ethyl Alcohol 450 mg/dL H* mg/dL (0-10) 04/04/18 14:15 WBC 8.35 10^3/uL 10^3/uL (3.80-9.50) RBC 4.46 10^6/uL 10^6/uL (4.18-5.33) Hgb 16.0 g/dL g/dL (12.6-16.3) Hct 45.1 % % (38.0-47.0) MCV 101.1 fL H fL (81.5-99.8) MCH 35.9 pg H pg (27.9-34.1) MCHC 35.5 g/dL g/dL (32.4-36.7) RDW 11.9 % % (11.5-15.2) Plt Count 200 10^3/uL 10^3/uL (150-400) MPV 10.2 fL fL (8.7-11.7) Neut % (Auto) 60.5 % % (39.3-74.2) Lymph % (Auto) 26.3 % % (15.0-45.0) [place] % (Auto) 12.1 % % (4.5-13.0) Eos % (Auto) 0.5 % L % (0.6-7.6) Baso % (Auto) 0.4 % % (0.3-1.7) Nucleat RBC Rel Count 0.0 % % (0.0-0.2) Absolute Neuts (auto) 5.05 10^3/uL 10^3/uL (1.70-6.50) Absolute Lymphs (auto) 2.20 10^3/uL 10^3/uL (1.00-3.00) Absolute Monos (auto) 1.01 10^3/uL H 10^3/uL (0.30-0.80) Absolute Eos (auto) 0.04 10^3/uL 10^3/uL (0.03-0.40) Absolute Basos (auto) 0.03 10^3/uL 10^3/uL (0.02-0.10) Absolute Nucleated RBC 0.00 10^3/uL 10^3/uL (0-0.01) Immature Gran % 0.2 % % (0.0-1.1) Immature Gran # 0.02 10^3/uL 10^3/uL (0.00-0.10) Sodium Potassium Chloride Carbon Dioxide Anion Gap BUN Creatinine Estimated GFR Glucose Calcium Beta HCG, Qual Urine Opiates Screen Urine Barbiturates Ur Phencyclidine Scrn Ur Amphetamine Screen U Benzodiazepines Scrn Urine Cocaine Screen U Marijuana (THC) Screen Ethyl Alcohol Medications Given: Discontinued Medications Sodium Chloride (Ns) 1,000 mls @ 0 mls/hr IV ONCE ONE PRN Reason: Wide Open Stop: 04/04/18 14:56 Last Admin: 04/04/18 15:08 Dose: Not Given Lorazepam (Ativan) 2 mg PO EDNOW ONE Stop: 04/04/18 20:07 Last Admin: 04/04/18 20:14 Dose: 2 mg Departure - Departure Disposition: Home, Routine, Self-Care Clinical Impression: Situational depression Alcohol intoxication Qualifiers: Complication of substance-induced condition: uncomplicated Qualified Code(s): F10.920 - Alcohol use, unspecified with intoxication, uncomplicated Condition: Good Instructions: Alcohol Intoxication (ED), Depression (ED) Additional Instructions: Read and follow provided instructions. Follow-up with [facility] as scheduled in mid March. Do not drink alcohol. Return to the emergency department for worsening symptoms, worsening depression , suicidal thoughts or other serious concerns. Referrals: [facility] [Outside] - As per Instructions
[2018-04-04] MEDS ORDERED: LORazepam 1 MG TAB PO ONE (20:06)
[2018-04-04 21:15] VITALS: BP 118/78
== END 2018-04-04 21:15 | disposition home or self-care (01) ==
LOC: EDUNIT#
DX: F43.21 Adjustment disorder with depressed mood (principal); F10.920 Alcohol use, unspecified with intoxication, uncomplicated; F17.200 Nicotine dependence, unspecified, uncomplicated
CPT/HCPCS: 80305; G0480

== ENCOUNTER 2018-07-13 09:15 | Emergency (ER) | payer MEDICAID ==
[2018-07-13] MEDS ORDERED: BENZOCAINE UNIT DOSE SPRAY HURRICAINE MM ONE (09:44)
--- NOTE | 2018-07-13 09:44 | EDPHY ---
General Time Seen by Provider: 07/13/18 09:37 Narrative: CHIEF COMPLAINT: Dental pain HISTORY OF PRESENT ILLNESS: Patient presents complaints of dental pain. This is on the left upper teeth. She says "I think my wisdom teeth are coming."She states severe pain over the past few days and feels that is infected. She has difficulty opening her mouth. She says she is not tolerating intake due to pain. No neck pain. No headache. No fever. No drainage. No dental care for the past year. No other associated complaints or modifying factors MEDICAL/SURGICAL/SOCIAL HISTORY: Bipolar disorder, PTSD, anxiety and depression, borderline personality REVIEW OF SYSTEMS: Ten systems reviewed and are negative unless otherwise noted in the HPI EXAMINATION General Appearance: Alert, no distress Head: normocephalic, atraumatic ENT: Airway is widely patent. There is no trismus. There is poor dentition with multiple dental caries. Teeth 13., 14 15 exhibit extensive caries. There is no pulpitis or abscess. No eruption of the wisdom teeth. No abnormality of the floor of the mouth. Cardiovascular: Pulses normal throughout. Brisk cap refill Neurological: A&O, sensory symmetric, strength symmetric Skin: Warm and dry, no rash Extremities: Nontender, no pedal edema DIFFERENTIAL DIAGNOSES: Including but not limited to dental caries, dental abscess, pulpitis MDM: 9:40 a.m. Dental pain involving teeth number 13, 14 and 15. There are extensive dental caries. No dental abscess. No pulpitis. No abnormality of the floor of the mouth, posterior pharynx her airway. There is no trismus. No palpable facial abscess or cellulitis. I do feel it is likely related to poor dentition and poor dental care. I offered and recommended a dental block. I will also provide short course of antibiotics and pain medication. I have contacted dental aid but they did not answer. Thus I left information regarding follow- up for her. 9:55 a.m. I have administered a digital block with significant improvement of her pain immediately. We discussed follow up with dental aid. I have contacted them and left a message. We discussed ED precautions for fever or actual trismus as demonstrated. She is discharged home with prophylaxis. Discharged stable condition. PROCEDURE: Dental block, left infraorbital nerve Indication: Dental pain Consent: Verbal Location: Left infraorbital nerve Anesthesia: Lidocaine 1% plain, 0.25% Marcaine plain, 5mL Description: The mucosa overlying the left maxillary teeth was prepped with Hurricaine spray x1. The above was then infused just inferior to the infraorbital nerve, taking care not to enter the infraorbital foramen. Good anesthesia. Tolerated well. Complications: None SUPERVISION: This patient was independently evaluated without direct involvement of or examination by the attending physician. ED Precautions: Worsening pain. Erythema, edema, cyanosis, pallor, paresthesia or anesthesia. - History Smoking Status: Heavy smoker - Objective Vital Signs: Initial Vital Signs Temperature (C) 98.4 F 07/13/18 09:18 Heart Rate 105 H 07/13/18 09:18 Respiratory Rate 17 07/13/18 09:18 Blood Pressure 134/95 H 07/13/18 09:18 O2 Sat (%) 95 07/13/18 09:18 O2 Delivery Mode Room Air Allergies/Adverse Reactions: No Known Allergies Allergy (Verified 07/13/18 09:18) Home Medications: Medication Instructions Recorded Amoxicillin Trihydrate [Amoxil] 500 mg PO TID 10 Days cap 07/13/18 oxyCODONE HCL/ACETAMINOPHEN 1 each PO Q4-6PRN PRN #5 tablet 07/13/18 [Percocet 5-325 mg Tablet] Medications Given: Discontinued Medications Benzocaine (Hurricaine Thornton) 1 each MM EDNOW ONE Stop: 07/13/18 09:45 Last Admin: 07/13/18 09:52 Dose: Not Given Departure - Departure Disposition: Home, Routine, Self-Care Clinical Impression: Pain, dental, Dental caries Condition: Good Instructions: Toothache (ED) Additional Instructions: 1. Antibiotics as prescribed to completion 2. Short course of pain medication as provided as needed. Do not mix with alcohol or any illicit substances 3. Contact dental aid as discussed and provided for outpatient definitive care 4. [facility] to establish primary care physician 5. ED precautions for worsening pain, vomiting, intolerance of intake by mouth, inability to open your mouth Referrals: [facility],. [Clinic] - As per Instructions [facility] [Outside] - As per Instructions Prescriptions: Amoxicillin Trihydrate [Amoxil] 500 mg PO TID 10 Days cap oxyCODONE HCL/ACETAMINOPHEN [Percocet 5-325 mg Tablet] 1 each PO Q4-6PRN PRN #5 tablet PRN Reason: Pain, Breakthrough
[2018-07-13 10:12] VITALS: BP 145/98
== END 2018-07-13 10:11 | disposition home or self-care (01) ==
PROC: 3E0X3BZ Introduction of Anesthetic Agent into Cranial Nerves, Percutaneous Approach (ICD-10-PCS; principal; 2018-07-13)
DX: K08.89 Other specified disorders of teeth and supporting structures (principal); K02.9 Dental caries, unspecified; F17.200 Nicotine dependence, unspecified, uncomplicated